=== PATIENT | female | born 1965 | race Caucasian/White ===

== ENCOUNTER → 2017-01-17 | Outpatient (CLI) | payer OTHER | LOC: SLEEP-COR 15:44 | DX: G47.33 Obstructive sleep apnea (adult) (pediatric) (principal) ==

== ENCOUNTER → 2021-01-19 | Outpatient (CLI) | payer OTHER | LOC: HEART CORB 10:54 | DX: I10 Essential (primary) hypertension (principal); I51.7 Cardiomegaly; R06.02 Shortness of breath | CPT/HCPCS: 93306 ==